=== PATIENT | female | born 1980 | race Caucasian/White ===

== ENCOUNTER 2021-03-31 08:28 | Day surgery (SDC) | payer BC ==
[2021-03-26 13:13] VITALS: BMI 34.8
[2021-03-31 08:43] VITALS: RESP 16; TEMP 97.7
[2021-03-31] MEDS ORDERED: LIDOCAINE 1% (10MG/ML) FOR IV START INTRADERMA ONE (08:48)
[2021-03-31] MEDS ORDERED: LACTATED RINGERS 1,000 ML IV ONE (08:48)
[2021-03-31] MEDS ORDERED: PROPOFOL 10 MG/ML 20 ML VIAL IV ONE (09:07)
[2021-03-31] MEDS ORDERED: MIDAZOLAM 2 MG/2 ML VIAL ONE (09:07)
--- NOTE | 2021-03-31 09:09 | P.GSHP ---
History of Present Illness H&P Date: 03/31/21 Chief Complaint: Colon cancer screening 40-year-old female with family history of colon cancer in her father. She had her last colonoscopy 7 years ago. That study was normal. Her today for routine screening colonoscopy. No bowel complaints. Past Medical History Additional Past Medical History / Comment(s): Family hx colon cancer. History of Any Multi-Drug Resistant Organisms: None Reported Additional Past Surgical History / Comment(s): Colonoscopy Past Anesthesia/Blood Transfusion Reactions: No Reported Reaction Smoking Status: Never smoker - Past Family History Father Family Medical History: Cancer Additional Family Medical History / Comment(s): Colon cancer age 49 Medications and Allergies Home Medications Medication Instructions Recorded Confirmed Type Ethinyl Estradiol/Drospirenone 1 tab PO DAILY 03/26/21 03/31/21 History [Ivana 28 Tablet] Multivitamin [Multivitamins Adult 2 each PO DAILY 03/26/21 03/31/21 History Gummies] Allergies Allergy/AdvReac Type Severity Reaction Status Date / Time No Known Allergies Allergy Verified 03/26/21 12:56 Surgical - Exam Vital Signs Temp Pulse Resp BP Pulse Ox 97.7 F 92 16 149/83 96 03/31/21 08:40 03/31/21 08:40 03/31/21 08:40 03/31/21 08:40 03/31/21 08:40 Physical exam: General: Well-developed, well-nourished HEENT: Normocephalic, sclerae nonicteric Abdomen: Nontender, nondistended Extremities: No edema Neuro: Alert and oriented Assessment and Plan (1) Colon cancer screening Narrative/Plan: Will proceed with colonoscopy Current Visit: Yes Status: Acute Code(s): Z12.11 - ENCOUNTER FOR SCREENING FOR MALIGNANT NEOPLASM OF COLON SNOMED Code(s): 680740322
--- NOTE | 2021-03-31 09:24 | P.PCN ---
Date of Procedure: 03/31/21 Procedure(s) Performed: PREOPERATIVE DIAGNOSIS: Colon cancer screening, family history in father POSTOPERATIVE DIAGNOSIS: Normal exam PROCEDURE: Colonoscopy ANESTHESIA: MAC SURGEON: Roel Moon M.D. SPECIMENS: None ENDOSCOPIC PROCEDURE: The patient was placed on the endoscopy table in the left decubitus position. The Olympus colonoscope was inserted into the anus and passed under direct visualization to the base of the cecum. The appendiceal orifice was visualized. From that point the scope was slowly withdrawn inspecting all surfaces carefully. There were no neoplastic inflammatory or polypoid lesions throughout the cecum, ascending, transverse, descending, sigmoid and rectum. There was no visible diverticulosis noted. Digital rectal examination was normal. The patient was taken to the recovery room in stable condition per anesthesia guidelines. RECOMMENDATIONS: Resume diet. Follow-up colonoscopy 5 years.
[2021-03-31 09:52] VITALS: BP 143/85; PULSE 75
== END 2021-03-31 10:11 | disposition home or self-care (01) ==
LOC: ORWHC2ENDO 08:28
PROVIDERS: ATTEND Surgery
DX: Z12.11 Encounter for screening for malignant neoplasm of colon (principal); Z80.0 Family history of malignant neoplasm of digestive organs; Z79.3 Long term (current) use of hormonal contraceptives
CPT/HCPCS: J2250; J2704; G0105; 45378

== ENCOUNTER 2024-07-03 11:28 | Day surgery (SDC) | payer BC ==
[2024-07-03] MEDS: IV FLUID CONTINUATION 1,000 ML IV ONE (11:50)
[2024-07-03 12:01] VITALS: TEMP 98.3
[2024-07-03] MEDS: LACTATED RINGERS 1,000 ML IV SCH (12:22)
[2024-07-03] MEDS ORDERED: PROPOFOL 10 MG/ML 20 ML VIAL IV ONE (12:37)
--- NOTE | 2024-07-03 12:41 | P.GSHP ---
History of Present Illness H&P Date: 07/03/24 Chief Complaint: Colon cancer screening 43-year-old female here for colonoscopy. Last colonoscopy 3 years ago. No bowel complaints. Family history of colon cancer in her father. Last colonoscopy normal. Past Medical History Additional Past Medical History / Comment(s): Family hx colon cancer. History of Any Multi-Drug Resistant Organisms: None Reported Additional Past Surgical History / Comment(s): Colonoscopy Past Anesthesia/Blood Transfusion Reactions: No Reported Reaction Smoking Status: Never smoker - Past Family History Father Family Medical History: Cancer Additional Family Medical History / Comment(s): Colon cancer age 49 Medications and Allergies Home Medications Medication Instructions Recorded Confirmed Type Ethinyl Estradiol/Drospirenone 1 tab PO DAILY 03/26/21 07/03/24 History [Ivana 28 Tablet] Propranolol HCl [Inderal] 60 mg PO DAILY 06/28/24 07/03/24 History Allergies Allergy/AdvReac Type Severity Reaction Status Date / Time No Known Allergies Allergy Verified 07/03/24 11:56 Surgical - Exam Vital Signs Temp Pulse Resp BP Pulse Ox 98.3 F 87 16 137/82 97 07/03/24 12:00 07/03/24 12:00 07/03/24 12:00 07/03/24 12:00 07/03/24 12:00 Physical exam: General: Well-developed, well-nourished HEENT: Normocephalic, sclerae nonicteric Abdomen: Nontender, nondistended Extremities: No edema Neuro: Alert and oriented Assessment and Plan (1) Colon cancer screening Narrative/Plan: Will proceed with colonoscopy at this time. Current Visit: No Status: Acute Code(s): Z12.11 - SNOMED Code(s): 710126810
--- NOTE | 2024-07-03 12:51 | P.PCN ---
Date of Procedure: 07/03/24 Procedure(s) Performed: PREOPERATIVE DIAGNOSIS: Colon cancer screening, family history of colon cancer POSTOPERATIVE DIAGNOSIS: Normal exam PROCEDURE: Colonoscopy ANESTHESIA: MAC SURGEON: Roel Moon M.D. SPECIMENS: None ENDOSCOPIC PROCEDURE: The patient was placed on the endoscopy table in the left decubitus position. The Olympus colonoscope was inserted into the anus and passed under direct visualization to the base of the cecum. The appendiceal orifice was visualized. From that point the scope was slowly withdrawn inspecting all surfaces carefully. There were no neoplastic inflammatory or polypoid lesions throughout the cecum, ascending, transverse, descending, sigmoid and rectum. There was no visible diverticulosis noted. Digital rectal examination was normal. The patient was taken to the recovery room in stable condition per anesthesia guidelines. RECOMMENDATIONS: Resume diet. Repeat colonoscopy 5 years.
[2024-07-03 13:17] VITALS: BP 113/78; PULSE 66; RESP 18
== END 2024-07-03 13:39 | disposition home or self-care (01) ==
LOC: ORWHC2ENDO 11:28
PROVIDERS: ATTEND Surgery
DX: Z80.0 Family history of malignant neoplasm of digestive organs
CPT/HCPCS: 45378; 81025